=== PATIENT | male | born 1990 | race Caucasian/White ===

== ENCOUNTER 2017-09-06 20:47 | Emergency (ER) | payer MEDICAID ==
[2017-09-06] MEDS ORDERED: ONDANSETRON 4 MG/2 ML VIAL IVP ONE (21:00)
[2017-09-06] MEDS ORDERED: NS 1,000 ML IV ONE ×2 (21:00)
--- NOTE | 2017-09-06 21:02 | EDPHY ---
H & P Stated Complaint: N,V since 1300 drinking [employer] Time Seen by Provider: 09/06/17 20:57 HPI/ROS: CHIEF COMPLAINT: Nausea vomiting HISTORY OF PRESENT ILLNESS: Patient is a 26-year-old man with a history of cyclic vomiting who when drinking this morning and has been vomiting ever since. Mom states that this happens whenever he drinks he never gets better actually received IV fluid Zofran. A history of hernia repair as a child. No other surgeries. No recent fevers. No trauma. Abdominal pain. denies marijuana. REVIEW OF SYSTEMS: Constitutional: denies: chills, fever, recent illness, recent injury EENTM: denies: blurred vision, double vision, nose congestion Respiratory: denies: cough, shortness of breath Cardiac: denies: chest pain, irregular heart rate, lightheadedness, palpitations Gastrointestinal/Abdominal: See HPI denies: abdominal pain, diarrhea, blood streaked stools Genitourinary: denies: dysuria, frequency, hematuria, pain Musculoskeletal: denies: joint pain, muscle pain Skin: denies: lesions, rash, jaundice, bruising Neurological: denies: headache, numbness, paresthesia, tingling, dizziness, weakness Hematologic/Lymphatic: denies: blood clots, easy bleeding, easy bruising Immunologic/allergic: denies: HIV/AIDS, transplant EXAM: GENERAL: Retching, no vomit HEAD: Atraumatic, normocephalic. EYES: Pupils equal round and reactive to light, extraocular movements intact, sclera anicteric, conjunctiva are normal. ENT: TMs normal, nares patent, oropharynx clear without exudates. Moist mucous membranes. NECK: Normal range of motion, supple without lymphadenopathy or JVD. LUNGS: Breath sounds clear to auscultation bilaterally and equal. No wheezes rales or rhonchi. HEART: Regular rate and rhythm without murmurs, rubs or gallops. ABDOMEN: Soft, nontender, normoactive bowel sounds. No guarding, no rebound. No masses appreciated. BACK: No CVA tenderness, no spinal tenderness, step-offs or deformities EXTREMITIES: Normal range of motion, no pitting or edema. No clubbing or cyanosis. NEUROLOGICAL: Cranial nerves II through XII grossly intact. Normal speech, normal gait. 5/5 strength, normal movement in all extremities, normal sensation PSYCH: Normal mood, normal affect. SKIN: Warm, dry, normal turgor, no visible rashes or lesions. Source: Patient Exam Limitations: No limitations - Personal History Current Tetanus/Diphtheria Vaccine: Yes Current Tetanus Diphtheria and Acellular Pertussis (TDAP): Yes - Medical/Surgical History Hx Asthma: No Hx Chronic Respiratory Disease: No Hx Diabetes: No Hx Cardiac Disease: No Hx Renal Disease: No Hx Cirrhosis: No Hx Alcoholism: No Hx HIV/AIDS: No Hx Splenectomy or Spleen Trauma: No Other PMH: hernia surgery,. wisdom teeth - Family History Significant Family History: No pertinent family hx - Social History Smoking Status: Light smoker Alcohol Use: Occasionally Constitutional: Initial Vital Signs Temperature (C) 36.9 C 09/06/17 20:53 Heart Rate 102 H 09/06/17 20:53 Respiratory Rate 22 H 09/06/17 20:53 Blood Pressure 124/93 H 09/06/17 20:53 O2 Sat (%) 96 09/06/17 20:53 O2 Delivery Mode Room Air Allergies/Adverse Reactions: penicillin G Allergy (Verified 09/06/17 20:56) Home Medications: Medication Instructions Recorded Ondansetron Odt [Zofran Odt 4 mg 4 mg PO Q4 PRN #20 tab 09/06/17 (RX)] Medical Decision Making ED Course/Re-evaluation: 10:00 p.m. the patient is feeling much better. His abdominal exam remains benign. He is asking for take-home Zofran. He no longer feels nauseous. He is drinking naeem francoise. I will finished his L of fluids. 10:30 p.m. the patient continues to feel well and is eager to go. Discussed continued treatment and follow-up and indications for returning. Differential Diagnosis: Partial list of the Differential diagnosis considered include but were not limited to; alcohol intoxication, dehydration, gastritis, food poisoning, cyclic and although unlikely based on the history and physical exam, I also considered obstruction, ischemia, appendicitis, biliary disease. I discussed these differential diagnoses and the plan with the patient as well as the usual and expected course. The patient understands that the diagnosis is provisional and that in medicine we are not always correct and that further workup is often warranted. Usual and customary warnings were given. All of the patient's questions were answered. The patient was instructed to return to the emergency department should the symptoms at all worsen or return, otherwise to followup with the physician as we discussed. - Data Points Medications Given: Discontinued Medications Sodium Chloride (Ns) 1,000 mls @ 0 mls/hr IV EDNOW ONE; Wide Open PRN Reason: Protocol Stop: 09/06/17 21:01 Last Admin: 09/06/17 21:04 Dose: 1,000 mls Sodium Chloride (Ns) 1,000 mls @ 0 mls/hr IV EDNOW ONE; Wide Open PRN Reason: Protocol Stop: 09/06/17 21:01 Last Admin: 09/06/17 21:05 Dose: 1,000 mls Ondansetron HCl (Zofran) 4 mg IVP EDNOW ONE Stop: 09/06/17 21:01 Last Admin: 09/06/17 21:04 Dose: 4 mg Ondansetron HCl (Zofran Odt 4 Mg Prepack#2) 1 btl TAKEHOME EDNOW ONE Stop: 09/06/17 22:25 Last Admin: 09/06/17 22:26 Dose: 1 btl Departure - Departure Disposition: Home, Routine, Self-Care Clinical Impression: Vomiting Qualifiers: Vomiting type: unspecified Vomiting Intractability: intractable Nausea presence : with nausea Qualified Code(s): R11.2 - Nausea with vomiting, unspecified Condition: Fair Instructions: Ondansetron (By mouth) Referrals: Christiane Avila PA [Primary Care Provider] - 2-3 days, call for appt. Prescriptions: Ondansetron Odt [Zofran Odt 4 mg (RX)] 4 mg PO Q4 PRN #20 tab PRN Reason: Nausea & Vomiting
[2017-09-06] MEDS ORDERED: ONDANSETRON 4MG PREPACK#2 BTL TAKEHOME ONE ×2 (22:19→22:24)
[2017-09-06 22:23] VITALS: BP 110/57; PULSE 98; RESP 16; TEMP 98.1; O2SAT 97
== END 2017-09-06 22:30 | disposition home or self-care (01) ==
LOC: CED 20:47
DX: R11.2 Nausea with vomiting, unspecified (principal); F17.200 Nicotine dependence, unspecified, uncomplicated; E86.9 Volume depletion, unspecified
CPT/HCPCS: 96374; J2405